=== PATIENT | female | born 1965 | race Caucasian/White ===

== ENCOUNTER 2019-05-25 09:00 | Observation (INO) ==
[2019-05-25 11:05] LABS: Basophils % 0.4 %; Eosinophils # 0.1 K/mcL (0.0-0.6); Eosinophils % 3.1 %; Hematocrit 42.9 % (35.3-44.9); Hemoglobin 13.8 g/dL (11.5-15.4); Immature Granulocytes % 0.2 % (0-4); Lymphocytes # 1.5 K/mcL (0.6-4.6); Lymphocytes % 32.7 %; Mean Corpuscular HGB Conc 32.2 g/dL (31.6-35.5); Mean Corpuscular Hemoglobin 28.5 pg (28.0-33.3); Mean Corpuscular Volume 88.6 fL (83.0-100.0); Mean Platelet Volume 10.1 fL (9.4-12.4); Monocytes # 0.4 K/mcL (0.0-1.3); Monocytes % 7.8 %; Neutrophils # 2.5 K/mcL (1.6-8.9); Platelet Count 228 K/mcL (140-400); Red Blood Count 4.84 M/mcL (3.82-4.97); Red Cell Distribution Width 13.6 % (11.5-14.5); Segmented Neutrophils % 55.8 %; White Blood Count 4.5 K/mcL (4.3-11.1)
[2019-05-25 11:24] LABS: BUN/Creatinine Ratio 22 (6-26); Blood Urea Nitrogen 14 mg/dL (6-20); Calcium 9.3 mg/dL (8.6-10.3); Carbon Dioxide 26 mEq/L (23-29); Chloride 109 mEq/L (98-107); Glucose 91 mg/dL (70-105); Osmolality,Calculated 292 (280-300); Sodium 141 mEq/L (136-145); eGFR For African Americans > 60 (> 60); eGFR For Non-African Americans > 60 (> 60)
--- NOTE | 2019-05-25 12:40 | History & Physical Report ---
Date of Encounter: 05/25/19 Time of Encounter: 11:15 24 Hour HP Update - Instructions Instructions: If the History and Physical is less than 30 days old and was completed prior to A.M. admission and or procedure and has NOT been updated on calendar day of procedure please complete this update prior to performing procedure. - Update Patient reports changes in Medical Condition: No Changes in examination, assessment, or condition: No Changes in Medication: No - Attending Attestation Mrs. Martin is a 53yo female presenting today for Rythmol initiation for PAF. Please refer to [facility] encounter with Dr. Ahmadi on 05/01/2019 as the H&P. Will obtain baseline labs and EKG. Plan to start Rythmol 150mg Q8H. Will need monitored for 5 total doses with daily EKGs to monitor QRS. Anticoagulated on Eliquis, no missed doses in the past month. Will plan for exercise stress EKG on Saturday before discharge to further monitor QRS, per Dr. Ryan. Prior CV Testing: -Echo 05/15/19: LVEF 60-65%, mild left ventricular diastolic dysfunction, normal RV structure and function, mild mitral regurgitation. -Nuclear stress test 03/31/19: negative for ischemia and infarct
[2019-05-25] MEDS ORDERED: Acetaminophen 325 MG TABLET PO PRN (15:20)
--- NOTE | 2019-05-25 18:35 | Electrocardiograph Report ---
[address] [address] Test Date: 2019-05-25 Pat Name: Shalini Martin Department: 111 Room: 2NE27 Gender: F Associate Business Analyst: : 1965 Requested By: Goran Valdez Order Number: [id number] Reading MD: Amos Ryan Measurements Intervals [place] Rate: 60 P: 44 ID: 145 QRS: 23 QRSD: 85 T: 29 QT: 415 QTc: 415 Interpretive Statements SINUS RHYTHM Electronically Signed On 05-25-2019 16:56:31 EDT by Amos Ryan
[2019-05-25] MEDS: Apixaban 5 MG TABLET PO SCH (20:08)
[2019-05-25] MEDS: Magnesium Oxide 400 MG TABLET PO SCH (20:08)
[2019-05-26] MEDS: Apixaban 5 MG TABLET PO SCH ×2 (09:15→21:05)
[2019-05-26] MEDS: Magnesium Oxide 400 MG TABLET PO SCH ×2 (09:15→21:05)
[2019-05-26] MEDS: Cholecalciferol (D-3) 1,000 UNIT (25MCG) TABLET PO SCH (09:15)
--- NOTE | 2019-05-26 10:51 | Cardiology Progress Note ---
<Karla Cooper - Last Filed: 05/26/19 10:48> Date of Encounter: 05/26/19 Time of Encounter: 10:00 Assessment and Plan (1) PAF (paroxysmal atrial fibrillation) Current Visit: Yes Status: Acute Here for Rythmol initiation for PAF. Rythmol 150mg Q8H, had third dose this morning. Continue BB as well. Will need monitored for 5 total doses with daily EKGs to monitor QRS. Anticoagulated on Eliquis, no missed doses in the past month. Will plan for exercise stress EKG on tomorrow before discharge to further monitor QRS, per Dr. Ryan. QRS: 05/25 85, 05/26:85. Currently in NSR. Prior CV Testing: -Echo 05/15/19: LVEF 60-65%, mild left ventricular diastolic dysfunction, normal RV structure and function, mild mitral regurgitation. -Nuclear stress test 03/31/19: negative for ischemia and infarct Discussion w patient/family: The assessment and plan as outlined above was discussed with the patient and/or family members who expressed understanding and agreement. All questions were answered. Thank you for involving us in the care of your patient. Please call with any questions. Subjective Principal diagnosis: PAF Interval history: Doing well this morning, no complaints. Objective Vital Signs, Last 4 Hours Temp Pulse Resp BP Pulse Ox 05/26/19 07:37 98.5 F 64 16 117/66 96 General: Conversant, No Apparent Distress HEENT: Atraumatic, Normocephaly, Mucus Membranes Moist Neck: No JVD, Normal carotid pulses Cardiac: Reg Rate and Rhythm, Normal S1 and S2, No Murmur Lungs: Normal Breath Sounds, No Wheeze, Rales, Rhonchi Neuro: Alert and responsive, No focal deficits noted Abdomen: Soft, Non-Tender Musculoskeletal: No Chest Wall Tenderness Extremities: No Clubbing, No Cyanosis, No Edema, Normal Pulses Results 05/25/19 10:30 05/25/19 10:41 Lab Results 05/25/19 05/25/19 10:30 10:41 WBC 4.5 Hgb 13.8 Hct 42.9 Plt Count 228 Sodium 141 Potassium 4.0 Chloride 109 H Carbon Dioxide 26 BUN 14 Creatinine 0.65 Glucose 91 Calcium 9.3 - Imaging and Cardiology Other Results: 12hr tele reviewed: NSR, average HR 69, no events noted - EKG Interpretation EKG results cardiology: personally reviewed, normal ECG, sinus rhythm Consult Discharge Plan - Plan Referrals: Fabby Martinez, [facility]ER [Primary Care Provider] - CHADS2-VASC Score - Score Age: Less than 65 Sex: Female CHF History: No Hypertension history: No Stroke/TIA/Thromboembolism Hx: Yes Vascular disease history: Yes Diabetes history: No Score: 4 <Amos Ryan - Last Filed: 05/26/19 19:03> Date of Encounter: 05/26/19 Assessment and Plan Discussion w patient/family: The assessment and plan as outlined above was discussed with the patient and/or family members who expressed understanding and agreement. All questions were answered. Thank you for involving us in the care of your patient. Please call with any questions. Objective Vital Signs, Last 4 Hours Temp Pulse Resp BP Pulse Ox 05/26/19 16:22 98.2 F 58 18 117/70 98 Results 05/25/19 10:30 05/25/19 10:41 - Attending Attestation I have personally performed a face to face evaluation on this patient. I have reviewed and agree with the documented findings and care plan as documented by the CERAMIC RESTORER. History and Exam by me shows: 53-year-old pleasant female with paroxysmal atrial fibrillation admitted for initiation of antiarrhythmic drug with propafenone. She has tolerated 3 doses without QRS prolongation or side effects AAOX3 in NAD at the bedside Hemodynamically stable Cardiopulmonary exam revealed S1, S2, no murmur; clear lungs Rhythm reviewed - sinus rhythm, no acute ST T changes Echo preserved EF, no significant valvular heart disease Impression/plan: Paroxysmal atrial fibrillation - Continue propafenone and 150 mg q 8hrly; monitor QRS duration on telemetry and with serial EKGs. Continue metoprolol 75mg bid; eliquis 5mg bid - Exercise stress test prior to discharge from the hospital to ensure QRS duration does not increase by greater than 25% Thanks for the consult, please call with questions. Amos Ryan MD [facility]
--- NOTE | 2019-05-26 16:09 | Electrocardiograph Report ---
[address] [address] Test Date: 2019-05-25 Pat Name: Shalini Martin Department: 111 Room: 2NE27 Gender: F Toe Former: Luci : 1965 Requested By: Amos Ryan Order Number: [id number] Reading MD: Sammi Whitney Measurements Intervals [place] Rate: 68 P: 46 ME: 138 QRS: 31 QRSD: 91 T: 38 QT: 380 QTc: 398 Interpretive Statements SINUS RHYTHM Electronically Signed On 05-26-2019 16:07:55 EDT by Sammi Whitney
--- NOTE | 2019-05-26 16:18 | Electrocardiograph Report ---
[address] [address] Test Date: 2019-05-26 Pat Name: Shalini Martin Department: 111 Room: 2NE27 Gender: F Paper Tube Grader: [place] : 1965 Requested By: Goran Valdez Order Number: [id number] Reading MD: Sammi Whitney Measurements Intervals [place] Rate: 74 P: 63 [place]: 158 QRS: 34 QRSD: 93 T: 43 QT: 392 QTc: 419 Interpretive Statements SINUS RHYTHM Electronically Signed On 05-26-2019 16:16:39 EDT by Sammi Whitney
--- NOTE | 2019-05-26 16:18 | Electrocardiograph Report ---
[address] [address] Test Date: 2019-05-26 Pat Name: Shalini Martin Department: 111 Room: 2NE27 Gender: F Student Recruiter: [place] : 1965 Requested By: Goran Valdez Order Number: [id number] Reading MD: Sammi Whitney Measurements Intervals [place] Rate: 68 P: 59 [place]: 159 QRS: 25 QRSD: 85 T: 40 QT: 400 QTc: 418 Interpretive Statements SINUS RHYTHM POSSIBLE RIGHT VENTRICULAR CONDUCTION DELAY [RSR (QR) IN V1/V2] Electronically Signed On 05-26-2019 16:17:04 EDT by Sammi Whitney
[2019-05-27 08:18] VITALS: BP 118/72
[2019-05-27] MEDS: Magnesium Oxide 400 MG TABLET PO SCH (09:47)
[2019-05-27] MEDS: Apixaban 5 MG TABLET PO SCH (09:47)
[2019-05-27] MEDS: Cholecalciferol (D-3) 1,000 UNIT (25MCG) TABLET PO SCH (09:47)
--- NOTE | 2019-05-27 10:59 | Discharge Summary ---
<Karla Cooper - Last Filed: 05/27/19 10:55> Date of Encounter: 05/27/19 Time of Encounter: 10:15 - Discharge Diagnosis (1) PAF (paroxysmal atrial fibrillation) Priority: Primary Status: Acute - Hospital Course Hospital course: Ms. Martin is a 53 year old female admitted 05/25 for planned Rythmol initiation for PAF. Rythmol 150mg Q8H, had 6th dose this morning. Discussed the need to stay on BB and Eliquis as well. QRS: 05/25 85, 05/26:85, 05/27 92. Currently in NSR with short episode of atrial flutter over night. Stress EKG this morning reviewed by Dr. Ryan, normal QRS response. Will discharge home today with scheduled follow-up with Dr. Ryan scheduled for 06/04. - Time Spent with Patient Total time spent providing and/or coordinating discharge services: Less than 30 minutes - Discharge Medications Prescriptions: New Propafenone [Rhythmol] 150 mg PO Q8HR #90 tablet Continued Cholecalciferol (Vitamin D3) [Vitamin D3] 1,000 units PO DAILY Acetaminophen [Tylenol Arthritis] 650 mg PO Q8H PRN PRN Reason: Pain Metoprolol [Lopressor] 75 mg PO BID Magnesium Oxide [Magnesium] 400 mg PO BID Ibuprofen [Motrin Ib] 600 mg PO Q8HR PRN PRN Reason: Pain Apixaban [Eliquis] 5 mg PO BID DiphenhydraMINE [Benadryl] 25 mg PO HS PRN PRN Reason: ALLERGY/ITCHING Home Medications: Acetaminophen [Tylenol Arthritis] 650 mg PO Q8H PRN 05/25/19 [History] Apixaban [Eliquis] 5 mg PO BID 05/25/19 [History] Cholecalciferol (Vitamin D3) [Vitamin D3] 1,000 units PO DAILY 05/25/19 [History] DiphenhydraMINE [Benadryl] 25 mg PO HS PRN 05/25/19 [History] Ibuprofen [Motrin Ib] 600 mg PO Q8HR PRN 05/25/19 [History] Magnesium Oxide [Magnesium] 400 mg PO BID 05/25/19 [History] Metoprolol [Lopressor] 75 mg PO BID 05/25/19 [History] Propafenone [Rhythmol] 150 mg PO Q8HR #90 tablet 05/27/19 [Rx] Allergies/Adverse Reactions: Allergy/AdvReac Type Severity Reaction Status Date / Time cephalexin [From Keflex] Allergy Rash, HIVES Verified 05/25/19 21:56 codeine Allergy Vomiting Verified 05/25/19 21:56 meloxicam Allergy Hives Verified 05/25/19 21:56 Date of admission: 05/25/19 10:18 Primary care physician: RAJNI Scott Discharging clinician: Karla Cooper Anticipated date of discharge: 05/27/19 Physical Examination Vital Signs, Last 4 Hours Temp Pulse Resp BP 05/27/19 08:15 98.2 F 67 18 118/72 General: Conversant, No Apparent Distress Neck: No JVD, Normal carotid pulses Cardiac: Reg Rate and Rhythm, Normal S1 and S2, No Murmur Lungs: Normal Breath Sounds, No Wheeze, Rales, Rhonchi Neuro: Alert and responsive, No focal deficits noted Musculoskeletal: No Chest Wall Tenderness Extremities: No Clubbing, No Cyanosis, No Edema, Normal Pulses - Patient Status Disposition: Home, Self-Care Condition: Fair Functional capacity at discharge: independent ambulation - Discharge Instructions Instructions: Propafenone (By mouth), Atrial Fibrillation (DC), Cardiac Stress Test (DC) Follow Up With: Fabby Martinez CNP [Primary Care Provider] - 06/03/19 2:00 pm - Diet and Activity Activity: resume usual activities as tolerated Diet: advance to your usual diet < A - Last Filed: 05/27/19 20:09> Date of Encounter: 05/27/19 - Hospital Course Hospital course: Ms. Martin is a 53 year old female - Time Spent with Patient Total time spent providing and/or coordinating discharge services: Date of admission: 05/25/19 10:18 Primary care physician: RAJNI Scott - Attending Attestation I have personally performed a face to face evaluation on this patient. I have reviewed and agree with the documented findings and care plan as documented by the [facility]GE [facility]. History and Exam by me shows: She has tolerated propefenone initiation quite well. No significant QRS prolongation. Continue propafenone 150 mg every 8hrs, metoprolol 75mg bid and Eliquis 5 mg twice a day. Follow-up in the office next week for EKG check. Saturday MD [facility]
--- NOTE | 2019-05-27 21:32 | Electrocardiograph Report ---
[address] [place], [place] [address] Test Date: 2019-05-27 Pat Name: Shalini Martin Department: 111 Room: 2NE27 Gender: F Home Supervisor: : 1965 Requested By: Goran Valdez Order Number: [id number] Reading MD: Shiloh Vieyra Measurements Intervals [place] Rate: 55 P: 49 [place]: 166 QRS: 30 QRSD: 92 T: 36 QT: 426 QTc: 416 Interpretive Statements SINUS BRADYCARDIA Electronically Signed On 05-27-2019 21:30:26 EDT by Shiloh Vieyra
== END 2019-05-27 13:51 | disposition home or self-care (01) ==
LOC: 2NENU
PROVIDERS: ADMIT Internal Medicine Cardiovascular Disease; ATTEND Internal Medicine Cardiovascular Disease